=== PATIENT | male | born 1995 | race African-American/Black ===

== ENCOUNTER 2022-11-30 20:33 | Emergency (ER) | payer SELFPAY ==
[~2022-11-30] VITALS: Ht 177.8 cm; Wt 68.0 kg
[2022-11-30 21:13] VITALS: BP 139/86
[2022-11-30 21:24] LABS: BASOPHILS % 0.7 % (0.0-2.0); EOSINOPHILS % 4.8 % (0.0-5.0); HEMOGLOBIN. 13.8 g/dL (14.0-18.0); LYMPHOCYTES % 46.9 % (20.0-50.0); MEAN CORPUSCULAR HEMOGLOBIN 28.6 pg (28.0-32.0); MEAN CORPUSCULAR VOLUME 82.8 fL (80.0-94.0); MEAN PLATELET VOLUME 7.6 fl (7.4-10.4); MONOCYTES % 8.9 % (2.0-8.0); NEUTROPHILS % 38.7 % (40.0-76.0); PLATELET 302 x1000/uL (130-400); RED BLOOD CELL COUNT 4.83 mill/uL (4.7-6.1); RED CELL DISTRIBUTION WIDTH 13.4 % (11.6-14.6)
[2022-11-30 21:41] LABS: CHLORIDE 109 mEq/L (98-107)
== END 2022-11-30 23:41 | disposition left against medical advice (07) ==
LOC: ER 20:33
DX: R07.9 Chest pain, unspecified (principal); Z53.21 Procedure and treatment not carried out due to patient leaving prior to being seen by health care provider
CPT/HCPCS: 36415; 71045; 80053; 85025; 93005; 99281